=== PATIENT | male | born 1955 | race Caucasian/White ===

== ENCOUNTER → 2020-05-03 | Outpatient (CLI) | payer BC | END | disposition home or self-care (01) | LOC: CFH 14:38 | PROVIDERS: ATTEND Internal Medicine Cardiovascular Disease | DX: Z13.6 Encounter for screening for cardiovascular disorders (principal); R06.02 Shortness of breath; I10 Essential (primary) hypertension; E78.2 Mixed hyperlipidemia | CPT/HCPCS: 75571 ==

== ENCOUNTER → 2020-05-31 | Outpatient (CLI) | payer BC | END | disposition home or self-care (01) | LOC: CVU 10:54 | PROVIDERS: ATTEND Internal Medicine Cardiovascular Disease | DX: I08.0 Rheumatic disorders of both mitral and aortic valves (principal); I10 Essential (primary) hypertension; E78.2 Mixed hyperlipidemia | CPT/HCPCS: 78452; 93017; 93306; 93356; A9502 ==

== ENCOUNTER 2020-06-15 10:26 | Observation (INO) | payer BC ==
[~2020-06-15] VITALS: Ht 182.9 cm; Wt 125.7 kg
[2020-06-15 10:49] VITALS: BP 130/81
[2020-06-15] MEDS ORDERED: PLEASE ENTER HEIGHT AND WEIGHT MC SCH (11:00)
[2020-06-15] MEDS ORDERED: SODIUM CHLORIDE 0.9% 1,000 ML IV SCH (11:00)
[2020-06-15] MEDS ORDERED: XIGDUO PO (11:04)
[2020-06-15] MEDS ORDERED: LISI-167 PO (11:04)
[2020-06-15] MEDS ORDERED: ATOR10TA9 PO (11:04)
[2020-06-15] MEDS ORDERED: ICOS1CAP PO (11:04)
[2020-06-15] MEDS ORDERED: LEVO175T5 PO (11:04)
[2020-06-15 11:12] LABS: BASOPHILS % (AUTO) 2 % (0-1); EOSINOPHILS % (AUTO) 3 % (1-7); LYMPHOCYTES % (AUTO) 29 % (22-44); MEAN CORPUSCULAR HEMOGLOBIN 34.8 pg (27.5-34.5); MEAN CORPUSCULAR HGB CONC 34.8 g/dL (33.2-36.2); MEAN PLATELET VOLUME 7.4 fL (7.4-10.4); MONOCYTES % (AUTO) 8 % (2-9); NEUTROPHILS % (AUTO) 59 % (42-75); PLATELET COUNT 243 x10^3/uL (130-400); RED BLOOD COUNT 5.05 x10^6/uL (4.38-5.82); RED CELL DISTRIBUTION WIDTH 13.1 % (9.4-14.8)
[2020-06-15 11:13] LABS: MD NO
[2020-06-15 11:19] LABS: ANION GAP 7 mmol/L (5-15); CALCIUM 9.4 mg/dL (8.5-10.1); CHLORIDE 108 mmol/L (98-107); CREATININE 1.18 mg/dL (0.7-1.3)
[2020-06-15] MEDS ORDERED: FENTANYL PF 100 MCG/2ML ONE (12:58)
[2020-06-15] MEDS ORDERED: MIDAZOLAM 1 MG/ML, 5ML ONE (12:58)
[2020-06-15] MEDS ORDERED: VERAPAMIL 2.5 MG/ML, 2ML ONE (12:59)
[2020-06-15] MEDS ORDERED: LIDOCAINE 1%, 20ML ONE (12:59)
[2020-06-15] MEDS ORDERED: HEPARIN 1,000 UNITS/ML, 10ML ONE (12:59)
[2020-06-15] MEDS ORDERED: NITROGLYCERIN 5 MG/ML, 10ML ONE (13:03)
[2020-06-15] MEDS ORDERED: BIVALIRUDIN 250 MG ONE (14:09)
[2020-06-15] MEDS: SODIUM CHLORIDE 0.9% 1,000 ML IV SCH ×2 (15:00→23:00)
[2020-06-15 16:05] VITALS: BP 102/65
[2020-06-15 18:57] VITALS: BP 104/75
[2020-06-15] MEDS ORDERED: ATORVASTATIN 10 MG TABLET PO SCH (21:00)
[2020-06-15] MEDS ORDERED: ATORVASTATIN 40 MG TABLET PO SCH (21:00)
[2020-06-15] MEDS: TICAGRELOR 90 MG TABLET PO SCH (21:57)
[2020-06-15 23:57] VITALS: BP 118/76
[2020-06-16 04:36] LABS: ANION GAP 7 mmol/L (5-15); CALCIUM 8.9 mg/dL (8.5-10.1); CHLORIDE 108 mmol/L (98-107); CREATININE 1.04 mg/dL (0.7-1.3)
[2020-06-16 06:53] VITALS: BP 117/76
[2020-06-16] MEDS: SODIUM CHLORIDE 0.9% 1,000 ML IV SCH (07:00)
[2020-06-16] MEDS ORDERED: TICA90TA PO (08:03)
[2020-06-16] MEDS ORDERED: ASPI-963 PO (08:03)
[2020-06-16] MEDS: TICAGRELOR 90 MG TABLET PO SCH (08:31)
[2020-06-16] MEDS ORDERED: LEVOTHYROXINE 175 MCG TABLET PO SCH (09:00)
[2020-06-16] MEDS ORDERED: LISINOPRIL 10 MG TABLET PO SCH (09:00)
[2020-06-16] MEDS ORDERED: LIDOCAINE 2%, 20ML ONE (12:54)
== END 2020-06-16 10:15 | disposition home or self-care (01) ==
LOC: CACL 10:26 → ORIP 14:59 → 5SO 15:34 → DCLOUNGE 06-16 10:04
PROVIDERS: ADMIT Internal Medicine Cardiovascular Disease; ATTEND Internal Medicine Cardiovascular Disease
DX: R07.89 Other chest pain (principal); R93.1 Abnormal findings on diagnostic imaging of heart and coronary circulation; I10 Essential (primary) hypertension; E78.5 Hyperlipidemia, unspecified; F10.10 Alcohol abuse, uncomplicated; Z79.899 Other long term (current) drug therapy
CPT/HCPCS: 36415; 80048; 85014; 85018; 85025; 93458; 96360; 99156; 99157; C1725; C1769; C1874; C1887; C1894; C9600; G0378; J0583; J1644; J2250; J3010; J3490; J7030; Q9967